=== PATIENT | male | born 1995 | race Caucasian/White ===

== ENCOUNTER 2017-04-20 21:55 | Emergency (ER) | payer OTHER ==
[~2017-04-20] VITALS: Ht 185.4 cm; Wt 92.6 kg
[2017-04-20 22:04] VITALS: TEMP 36.8; Ht 185.4 cm; Wt 92.6 kg
[2017-04-20] MEDS ORDERED: KETOROLAC TROMETHAMINE 60 MG/2 ML VIAL IM STA (22:15)
--- NOTE | 2017-04-20 22:43 | DIAGNOSTIC IMAGING REPORT ---
L SHOULDER MIN 2 VIEWS ROUTINE CLINICAL HISTORY: Post reduction. COMPARISON: None FINDINGS: Alignment of the left glenohumeral joint is anatomic. There is a suspected Hill-Sachs. No displaced fracture is identified. There is slight elevation of the distal left clavicle with respect to the acromion. Cortical thickening of the medial proximal to mid shaft of the left humerus is chronic. IMPRESSION: 1. Anatomic alignment of the left glenohumeral joint status post reduction. Suspected Hill-Sachs. 2. Slight elevation of the distal left clavicle with respect to the acromion which is age indeterminate. Electronically signed by: Burt Villarreal M.D. 04/20/2017 10:42 PM Dictated Date/Time: 04/20/2017 10:40 PM
[2017-04-20 23:08] VITALS: BP 119/76; PULSE 81; O2SAT 99
--- NOTE | 2017-04-21 04:49 | EMERGENCY ROOM VISIT NOTE ---
ED Visit Note First contact with patient: 22:07 CHIEF COMPLAINT: Shoulder injury HISTORY OF PRESENT ILLNESS: This patient injured the shoulder earlier today with immediate onset of pain when he reached his arm behind his back and dislocated his shoulder. He has done this before. There is marked limitation of motion of the arm because of the pain. The patient did not hear a cracking the sound at the time of the injury. The pain is steady and severe and much worse with any movement of the arm. REVIEW OF SYSTEMS: A 6 system review of systems was completed with positives and pertinent negatives listed in the HPI. PMH: The patient is healthy; there is no significant medical or surgical history. SOCIAL HISTORY: Patient lives at home. Non-smoker, no excessive alcohol use. PHYSICAL EXAM: Vital Signs: Reviewed nurse's notes. The shoulder is slightly swollen and deformed on inspection. There is a palpable defect on the anterior aspect of the shoulder and the entire anterior shoulder is tender. The range of motion is markedly reduced in all directions because of the pain. There is no tenderness of the distal clavicle. The lungs are clear to auscultation. EMERGENCY DEPARTMENT COURSE: I examined the patient. Patient had no fall or trauma. I did reduce the shoulder without prior x-ray as there was no fall or trauma. Anterior Shoulder Dislocation Reduction Indication: Shoulder dislocation Verbal consent obtained. Risks and benefits were explained with the usual customary discussion. A time out was taken. Neurovascular examination before the procedure revealed intact. The left shoulder glenohumeral dislocation was reduced by placing the patient prone and applying gentle downward inline traction on the humerus, with the elbow flexed at 90 degrees, while scapula manipulation was applied. This resulted in an easy reduction without complication. Neurovascular examination after the procedure revealed intact. The patient had significant pain relief and tolerated the procedure well. Post reduction x-ray showed that the head of the humerus was back in the anatomical position.L SHOULDER MIN 2 VIEWS ROUTINE CLINICAL HISTORY: Post reduction. COMPARISON: None FINDINGS: Alignment of the left glenohumeral joint is anatomic. There is a suspected Hill-Sachs. No displaced fracture is identified. There is slight elevation of the distal left clavicle with respect to the acromion. Cortical thickening of the medial proximal to mid shaft of the left humerus is chronic. IMPRESSION: 1. Anatomic alignment of the left glenohumeral joint status post reduction. Suspected Hill-Sachs. 2. Slight elevation of the distal left clavicle with respect to the acromion which is age indeterminate. Electronically signed by: Burt Villarreal M.D. A arm sling was placed and the patient was instructed as below. Patient was strongly encouraged to follow-up with orthopedics for his recurrent shoulder dislocation. He was advised to return to the ER immediately for severe pain, numbness, tingling, worsening signs or symptoms or as needed. DIAGNOSIS: Shoulder dislocation, left DISCHARGE INSTRUCTIONS & TREATMENT: As below Current/Historical Medications No Active Prescriptions or Reported Meds Allergies Coded Allergies: No Known Allergies (Unverified , 04/20/17) Vital Signs Date Time Temp Pulse Resp B/P (MAP) Pulse Ox O2 Delivery O2 Flow Rate FiO2 04/20/17 23:08 81 16 119/76 99 04/20/17 22:04 36.8 84 16 129/83 97 Room Air Medications Administered Medications (Trade) Dose Ordered Sig/Deepa Route Start Time Stop Time Status Last Admin Dose Admin Ketorolac Tromethamine (Toradol Inj) 60 mg NOW STAT IM 04/20/17 22:15 04/20/17 22:17 DC 04/20/17 22:15 60 MG Departure Information Impression Primary Impression: Dislocation of left shoulder joint Dispostion Home / Self-Care Condition GOOD Prescriptions No Active Prescriptions or Reported Meds Referrals No Doctor, Assigned Eamon Palmer M.D. Forms WORK / SCHOOL INSTRUCTIONS, HOME CARE DOCUMENTATION FORM, IMPORTANT VISIT INFORMATION Patient Instructions [facility], ED Dislocation Shoulder Redu Additional Instructions Ibuprofen(Motrin, Advil) may be used for fever or pain. Use 600mg every six hours as needed. Take with food. Avoid using more than 2400mg in a 24 hour period. Do not use 2400mg per day for more than three consecutive days without physician direction. Prolonged inappropriate use can lead to stomach upset or ulcers. This medication can be taken if you need to drive, work, or perform activities which may be dangerous when taking narcotic pain medication. (AND/OR) Acetaminophen(Tylenol) may be used for fever or pain. Use 1000mg every six hours as needed. Avoid using more than 3000mg in a 24 hour period. This medication can be taken if you need to drive, work, or perform activities which may be dangerous when taking narcotic pain medication. Ice compresses for 20 minutes at a time four times daily for 2-3 days. Use the sling as instructed. Remove your arm from the sling 4-6 times a day and move all the joints around to keep them loose. Rest and elevate your injury. Continue current medications. Return to the ER immediately for any numbness, tingling, severe pain, extreme swelling in the extremity or as needed. Call Orthopedics tomorrow to arrange follow up for your injury.
== END 2017-04-20 23:09 | disposition home or self-care (01) ==
LOC: C.EDB 21:57
DX: S43.005A Unspecified dislocation of left shoulder joint, initial encounter (principal); X50.9XXA Other and unspecified overexertion or strenuous movements or postures, initial encounter